=== PATIENT | female | born 1975 | race Hispanic/Latino ===

== ENCOUNTER 2020-08-21 10:34 | Outpatient (CLI) | payer OTHER ==
--- NOTE | 2020-08-21 11:25 | ULT ---
Pelvic sonogram transabdominal and transvaginal imaging with duplex evaluation HISTORY: Irregular menstrual bleeding. FINDINGS: Urinary bladder is incompletely distended. Uterus has a heterogeneous echotexture and is 8. 7 cm length. Endometrium is 1.0 cm thick. Small irregular cystic lesion within the fundal endometrium is 0.6 cm x 0.4 cm x 0.3 cm greatest diameters and contains a 0.4 cm echogenic focus along the posterior margin. A 0.6 cm nabothian cyst noted at the cervix. No free fluid. Right ovary not visualized with transabdominal or transvaginal imaging. No adnexal masses apparent. Left ovary is 2.3 cm. Normal appearance with good color and spectral Doppler flow. IMPRESSION : Thickened endometrium with a small complex cystic lesion and calcification. Please consider endometri al sampling.
== END 2020-08-21 10:35 | disposition home or self-care (01) ==
LOC: BICULT 10:34
PROVIDERS: ATTEND Family Medicine
DX: N92.6 Irregular menstruation, unspecified (principal); R93.89 Abnormal findings on diagnostic imaging of other specified body structures
CPT/HCPCS: 76856